=== PATIENT | female | born 1985 ===

== ENCOUNTER 2016-10-26 14:25 | Emergency (ER) | payer MEDICAID, OTHER ==
[2016-10-26 15:14] VITALS: RESP 16; TEMP 99.8
[2016-10-26] MEDS ORDERED: Sodium Chloride 0.9% 1,000 ML IV STA (15:21)
[2016-10-26 15:57] LABS: BASO % 0.3 % (0.0-2.0); EOS % 0.3 % (0.0-4.0); HEMATOCRIT 42.6 % (34.0-47.0); LYMPH % 10.3 % (20.0-40.0); MEAN CELL VOLUME 86.2 fl (81.0-99.0); MEAN CORPUSCULAR HEMOGLOBIN 27.7 pg (27.0-31.0); MEAN CORPUSCULAR HGB CONC 32.1 g/dL (33.0-37.0); MEAN PLATELET VOLUME 8.5 fl (7.2-11.7); MONO # 0.6 K/uL (0.0-0.8); MONO % 5.7 % (0.0-10.0); NEUT # 8.1 K/uL (1.8-7.0); NEUT % 83.4 % (50.0-75.0); RED CELL DISTRIBUTION WIDTH 13.3 % (11.5-14.5); WHITE BLOOD COUNT 9.8 K/uL (4.8-10.8)
--- NOTE | 2016-10-26 15:58 | ED PDOC ---
HPI: Abdomen Time Seen by Provider: 10/26/16 15:21 Chief Complaint (Nursing): Abdominal Pain Chief Complaint (Provider): Abdominal Pain History Per: Patient History/Exam Limitations: no limitations Onset/Duration Of Symptoms: Days (since last night) Outside of [place] travel?: No Current Symptoms Are (Timing): Still Present Severity: Moderate Location Of Pain/Discomfort: Diffuse Quality Of Discomfort: Cramping Associated Symptoms: Vomiting, Diarrhea, Loss Of Appetite, Other (body aches) Additional Complaint(s): Chandrika Mcgowan is a 30 year old female, with no pertinent past medical history, who presents to the emergency department for the evaluation of diffuse, non- focalized abdominal cramping, that the patient has been experiencing since last night. Associated vomiting, diarrhea, body aches, and a loss of appetite are currently present. Denies sick contacts. PMD: none specified Past Medical History Reviewed: Historical Data, Nursing Documentation, Vital Signs Vital Signs: Last Vital Signs Temp 99.8 F H 10/26/16 15:12 Pulse 95 H 10/26/16 18:49 Resp 16 10/26/16 18:49 BP 120/72 10/26/16 18:49 Pulse Ox 98 10/26/16 18:49 - Medical History PMH: Kidney Stones - Surgical History Surgical History: - Family History Family History: States: No Known Family Hx - Home Medications Home Medications: Ambulatory Orders Medication Instructions Recorded Acetaminophen [Tylenol 325mg tab] 650 mg PO Q6 PRN #0 tab 04/12/16 Ciprofloxacin HCl [Cipro] 500 mg PO BID #14 tablet 04/12/16 Loperamide [Loperamide HCl] 2 mg PO QID PRN #12 cap 10/26/16 Ondansetron [Zofran] 4 mg PO Q6H PRN #10 tab 10/26/16 - Allergies Allergies/Adverse Reactions: Allergies Allergy/AdvReac Type Severity Reaction Status Date / Time No Known Allergies Allergy Verified 04/10/16 21:12 Review of Systems ROS Statement: Except As Marked, All Systems Reviewed And Found Negative Constitutional: Positive for: Other (body aches) Gastrointestinal: Positive for: Vomiting, Abdominal Pain (diffuse, non-focalized , "cramping"), Diarrhea, Other (loss of appetite) Physical Exam - Reviewed Nursing Documentation Reviewed: Yes Vital Signs Reviewed: Yes - Physical Exam Appears: Positive for: Well (mildly dehydrated appearing), Non-toxic, No Acute Distress Head Exam: Positive for: ATRAUMATIC, NORMOCEPHALIC Skin: Positive for: Normal Color, Warm, Dry Cardiovascular/Chest: Positive for: Regular Rate, Rhythm. Negative for: Murmur Respiratory: Positive for: Normal Breath Sounds. Negative for: Respiratory Distress Gastrointestinal/Abdominal: Positive for: Normal Exam, Soft. Negative for: Tenderness Back: Positive for: Normal Inspection. Negative for: L CVA Tenderness, R CVA Tenderness Neurologic/Psych: Positive for: Alert, Oriented - Laboratory Results Result Diagrams: 10/26/16 15:45 10/26/16 15:45 - ECG O2 Sat by Pulse Oximetry: 100 (RA) Pulse Ox Interpretation: Normal Medical Decision Making Medical Decision Makin:21 Initial Impression: Gastroenteritis Initial Plan: * CBC * CMP * Lipase * Urine Dip * Urine * Bentyl 10 mg PO * Imodium 2 mg PO * Sodium Chloride 0.9% 1,000 ml IV at 1,000 mls/hr * Toradol 30 mg IV * Zofran 4 mg IV * Reevaluation labs reveal mild hypokalemia, K+ replaced orally. Improved in ED. Denied pain or nausea on re-evaluation. DC with oral reghydration instructions and indications for return to ED. Scribe Attestation: Documented by Les Mejia, acting as a scribe for Jacob Allen III, MD. Provider Scribe Attestation: All medical record entries made by the Scribe were at my direction and personally dictated by me. I have reviewed the chart and agree that the record accurately reflects my personal performance of the history, physical exam, medical decision making, and the department course for this patient. I have also personally directed, reviewed, and agree with the discharge instructions and disposition. Disposition - Clinical Impression Clinical Impression: Gastroenteritis - Patient ED Disposition Is Patient to be Admitted: No Counseled Patient/Family Regarding: Studies Performed, Diagnosis, Need For Followup, Rx Given - Disposition Referrals: [facility] [Outside] Disposition: Routine/Home Disposition Time: 17:45 Condition: STABLE Additional Instructions: Return to ER for any new or worsening symptoms. Take medication as directed. Prescriptions: Loperamide [Loperamide HCl] 2 mg PO QID PRN #12 cap PRN Reason: Diarrhea Ondansetron [Zofran] 4 mg PO Q6H PRN #10 tab PRN Reason: Nausea/Vomiting Instructions: Gastroenteritis (ED), Acute Nausea and Vomiting (ED)
[2016-10-26 16:10] LABS: ALB/GLOB RATIO 1.4 (1.0-2.1); ALKALINE PHOSPHATASE 59 U/L (38-126); ALT/SGPT 49 U/L (9-52); AST/SGOT 36 U/L (14-36); BILIRUBIN,TOTAL 0.3 mg/dl (0.2-1.3); BLOOD UREA NITROGEN 9 mg/dl (7-17); CALCIUM 9.2 mg/dL (8.4-10.2); CARBON DIOXIDE 25 mmol/L (22-30); CHLORIDE 101 mmol/L (98-107); GFR AFRICAN-AMERICAN > 60; GLUCOSE,RANDOM 91 mg/dL (65-105); LIPASE 36 U/L (23-300); POTASSIUM 3.4 MMOL/L (3.6-5.0); SODIUM 139 mmol/l (132-148); TOTAL PROTEIN 8.4 G/DL (6.3-8.2)
[2016-10-26] MEDS ORDERED: Potassium Chloride 20 mEq ER Tab PO ONE ×2 (16:55→18:12)
[2016-10-26 18:51] VITALS: BP 120/72; PULSE 95
[2016-11-07 15:17] VITALS: O2SAT 100
== END 2016-10-26 18:51 | disposition home or self-care (01) ==
LOC: H.ER 14:25
DX: K52.9 Noninfective gastroenteritis and colitis, unspecified (principal); R11.10 Vomiting, unspecified; R19.7 Diarrhea, unspecified

== ENCOUNTER 2018-11-05 21:10 | Emergency (ER) | payer SELFPAY ==
[2018-11-05] MEDS ORDERED: Sodium Chloride 0.9% 1,000 ML IV STA (22:30)
--- NOTE | 2018-11-05 23:18 | ED PDOC ---
HPI: Abdomen Time Seen by Provider: 11/05/18 22:30 Chief Complaint (Nursing): Abdominal Pain Chief Complaint (Provider): Abdominal Pain History Per: Patient History/Exam Limitations: no limitations Onset/Duration Of Symptoms: Intermittent Episodes (x1 week) Current Symptoms Are (Timing): Still Present Additional Complaint(s): 32 year old female presents to the emergency department with a complaint of intermittent, left-sided abdominal pain for 1 week. She reports associated nausea, vomiting, and diminished appetite. Patient denies any fever, chills, diarrhea, or chest pain. Past Medical History Reviewed: Historical Data, Nursing Documentation, Vital Signs Vital Signs: Last Vital Signs Temp 98.3 F 11/05/18 21:52 Pulse 58 L 11/05/18 21:52 Resp 16 11/05/18 21:52 BP 109/62 11/05/18 21:52 Pulse Ox 98 11/05/18 21:52 Primary Care Provider: FAMILY PROVIDER,NO - Medical History PMH: Kidney Stones, Chronic Kidney Disease - Surgical History Surgical History: - Family History Family History: States: Unknown Family Hx - Social History Current smoker - smoking cessation education provided: No Alcohol: None Drugs: Denies - Home Medications Home Medications: Ambulatory Orders Medication Instructions Recorded Acetaminophen [Tylenol 325mg tab] 650 mg PO Q6 PRN #0 tab 04/12/16 Ciprofloxacin HCl [Cipro] 500 mg PO BID #14 tablet 04/12/16 Loperamide [Loperamide HCl] 2 mg PO QID PRN #12 cap 10/26/16 Ondansetron [Zofran] 4 mg PO Q6H PRN #10 tab 10/26/16 Famotidine [Pepcid] 20 mg PO Q12 #14 tab 11/06/18 Ondansetron ODT [Zofran ODT] 4 mg PO Q6 PRN #8 odt 11/06/18 - Allergies Allergies/Adverse Reactions: Allergies Allergy/AdvReac Type Severity Reaction Status Date / Time No Known Allergies Allergy Verified 11/05/18 21:52 Review of Systems ROS Statement: Except As Marked, All Systems Reviewed And Found Negative Constitutional: Negative for: Fever, Chills Cardiovascular: Negative for: Chest Pain Gastrointestinal: Positive for: Nausea, Vomiting, Abdominal Pain (left-sided), Other (decreased appetite). Negative for: Diarrhea Physical Exam - Reviewed Nursing Documentation Reviewed: Yes Vital Signs Reviewed: Yes - Physical Exam Appears: Positive for: No Acute Distress Head Exam: Positive for: ATRAUMATIC, NORMAL INSPECTION, NORMOCEPHALIC Skin: Positive for: Normal Color Eye Exam: Positive for: Normal appearance ENT: Positive for: Normal ENT Inspection Neck: Positive for: Normal Cardiovascular/Chest: Positive for: Regular Rate, Rhythm Respiratory: Positive for: Normal Breath Sounds. Negative for: Respiratory Distress Gastrointestinal/Abdominal: Positive for: Soft, Tenderness (left suprapubic mildly) Back: Positive for: Normal Inspection. Negative for: L CVA Tenderness, R CVA Tenderness Extremity: Positive for: Normal ROM (upper/lower) Neurological/Psych: Positive for: Awake, Alert, Normal Tone, Oriented (x3). Negative for: Motor/Sensory Deficits - Laboratory Results Result Diagrams: 11/05/18 23:22 11/05/18 23:22 Urine POC: Negative - ECG O2 Sat by Pulse Oximetry: 98 (RA) Pulse Ox Interpretation: Normal Medical Decision Making Medical Decision Making: Initial Impression: 32 year old female with abdominal pain. Initial Plan: * Labs including UA * IV fluids * US transvaginal * Zofran IV Time: 0121 --US transvaginal Findings: The uterus measures 7x3.9x4.8 cm. Anteverted uterus. Fluid in the endocervical canal. Unremarkable intrauterine device. Unremarkable right ovary. Unremarkable left ovary. Impression: Fluid in the endocervical canal. Time: 0205 --Labs reviewed: (-) significant clinical abnormality. Upon provider re- evaluation, patient is medically stable, reports improvement in symptoms, and requires no further treatment in the ED at this time. Findings and plan were discussed with patient who verbalizes understanding. Patient will be discharged home with Rx for Zofran and Pepcid. Counseling was provided and all questions were answered regarding diagnosis. There is agreement to discharge plan. Return precautions discussed. Clinical Impression: abdominal pain Scribe Attestation: Documented by Katya Edouard, acting as a scribe for Frank Ryan MD. Provider Scribe Attestation: All medical record entries made by the Scribe were at my direction and personally dictated by me. I have reviewed the chart and agree that the record accurately reflects my personal performance of the history, physical exam, medical decision making, and the department course for this patient. I have also personally directed, reviewed, and agree with the discharge instructions and disposition. Disposition - Clinical Impression Clinical Impression: Abdominal pain - Patient ED Disposition Is Patient to be Admitted: No Counseled Patient/Family Regarding: Studies Performed, Diagnosis, Need For Followup, Rx Given - Disposition Referrals: [facility] [Outside] Disposition: Routine/Home Disposition Time: 02:05 Condition: STABLE Prescriptions: Famotidine [Pepcid] 20 mg PO Q12 #14 tab Ondansetron ODT [Zofran ODT] 4 mg PO Q6 PRN #8 odt PRN Reason: Nausea/Vomiting Instructions: Stomach Ache and Stomach Upset Forms: [employer] (Sinhala) Print Language: VIET[place]ESE
[2018-11-05 23:25] LABS: BASO # 0.1 K/uL (0.0-0.2); BASO % 0.9 % (0.0-2.0); EOS # 0.1 K/uL (0.0-0.7); EOS % 0.6 % (0.0-4.0); HEMOGLOBIN 12.8 g/dL (12.0-16.0); LYMPH # 4.2 K/uL (1.0-4.3); LYMPH % 44.2 % (20.0-40.0); MEAN CELL VOLUME 87.9 fl (81.0-99.0); MEAN CORPUSCULAR HEMOGLOBIN 28.4 pg (27.0-31.0); MEAN CORPUSCULAR HGB CONC 32.3 g/dL (33.0-37.0); MEAN PLATELET VOLUME 8.3 fl (7.2-11.7); MONO # 0.5 K/uL (0.0-0.8); NEUT # 4.6 K/uL (1.8-7.0); NEUT % 49.3 % (50.0-75.0); NRBC % 0.1 % (0.0-0.0); RBC 4.49 Mil/uL (3.80-5.20); RED CELL DISTRIBUTION WIDTH 13.4 % (11.5-14.5); WHITE BLOOD COUNT 9.4 K/uL (4.8-10.8)
[2018-11-05 23:34] LABS: ALB/GLOB RATIO 1.6 (1.0-2.1); ALBUMIN 4.4 g/dL (3.5-5.0); ALT/SGPT 37 U/L (9-52); AST/SGOT 29 U/L (14-36); BLOOD UREA NITROGEN 12 mg/dl (7-17); CALCIUM 9.1 mg/dL (8.4-10.2); GFR NON-AFRICAN AMERICAN > 60; LIPASE 89 U/L (23-300); SQUAMOUS EPITHIAL 6 /hpf (0-5); URINE BACTERIA RARE (<OCC); URINE BILIRUBIN NEGATIVE (NEGATIVE); URINE BLOOD NEGATIVE (NEGATIVE); URINE CLARITY SLIGHTY-CLOUDY (Clear); URINE COLOR YELLOW (YELLOW); URINE GLUCOSE (UA) NEG (NEGATIVE); URINE LEUKOCYTE ESTERASE NEG Leu/uL (Negative); URINE PROTEIN NEGATIVE (NEGATIVE); URINE UROBILINOGEN 0.2-1.0 mg/dL (0.2-1.0)
[2018-11-06 02:46] VITALS: BP 119/83; PULSE 51; RESP 18; TEMP 98.2; O2SAT 100
--- NOTE | 2018-11-06 09:40 | US ---
Date of service: 11/05/2018 HISTORY: left pelvic pain. LMP unsure. History of IUD size-patient hardly ever gets her period. History of 1 prior . COMPARISON: None available. TECHNIQUE: Transvaginal real-time scanning with color Doppler applied. FINDINGS: UTERUS: Measures 7.0 x 3.9 x 4.8 cm. Normal in size and appearance. No fibroid or other mass lesion seen.An intrauterine device is present appears normal position. ENDOMETRIUM: Endometrium difficult to evaluate-with IUD in place. CERVIX: Trace endocervical fluid present otherwise unremarkable. RIGHT OVARY: Measures 3.6 x 2.4 x 2.3 cm. No solid mass. Normal flow. LEFT OVARY: Measures 3.3 x 2.0 x 2.3 cm. No solid mass. Normal flow. FREE FLUID: No significant free fluid noted. OTHER FINDINGS: None. IMPRESSION: Intrauterine device present and in normal position. This limits optimal evaluation of the endometrium. This minimal fluid in the endocervical canal. No additional cervical findings noted. Concordant results (preliminary interpretation) provided by [employer].
== END 2018-11-06 02:15 | disposition home or self-care (01) ==
LOC: H.ER 21:10
DX: R10.9 Unspecified abdominal pain (principal)
CPT/HCPCS: 76830; 80053; 81003; 81025; 83690; 85025; 99283; J2405; J7030